=== PATIENT | male | born 1990 | race Caucasian/White ===

== ENCOUNTER 2016-07-12 13:04 | Emergency (ER) | payer MEDICAID, OTHER ==
--- NOTE | 2016-07-12 13:39 | EDPHY ---
H & P Stated Complaint: Was in the hospital last week for "heart issues". Feels fatigued Time Seen by Provider: 07/12/16 13:29 HPI/ROS: CHIEF COMPLAINT: Hot flashes HISTORY OF PRESENT ILLNESS: The patient is a 26-year-old man who comes to the emergency department complaining of hot flashes. He is concerned however because he had some chest pain last week and was seen in the urgent care and transferred from there in an ambulance to the emergency department at [facility]. They kept him there for 5 hours and then discharged him will without any specific diagnosis. He has continued to have mild chest tingling but no pain. No shortness of breath. Today he began to have hot flashes and cold sweats. No fever. No sore throat, no runny nose, no cough. He thought that maybe he was getting the flu but called the nurse advice line who recommended he come be seen. He does have a history of significant asthma but has not had any recent wheezing or exacerbations. He also has a significant history of drug abuse but states that he has not taken any substances last week other than the prescribe Suboxone. He did take a dose of this each day over the last week and denies withdrawal symptoms. REVIEW OF SYSTEMS: Constitutional: denies: chills, fever, recent illness, recent injury EENTM: denies: blurred vision, double vision, nose congestion Respiratory: denies: cough, shortness of breath Cardiac: See HPI Gastrointestinal/Abdominal: denies: abdominal pain, diarrhea, nausea, vomiting, blood streaked stools Genitourinary: denies: dysuria, frequency, hematuria, pain Musculoskeletal: denies: joint pain, muscle pain Skin: denies: lesions, rash, jaundice, bruising Neurological: denies: headache, numbness, paresthesia, tingling, dizziness, weakness Hematologic/Lymphatic: denies: blood clots, easy bleeding, easy bruising Immunologic/allergic: denies: HIV/AIDS, transplant EXAM: GENERAL: Well-appearing, well-nourished and in no acute distress. HEAD: Atraumatic, normocephalic. EYES: Pupils equal round and reactive to light, extraocular movements intact, sclera anicteric, conjunctiva are normal. ENT: TMs normal, nares patent, oropharynx clear without exudates. Moist mucous membranes. NECK: Normal range of motion, supple without lymphadenopathy or JVD. LUNGS: Breath sounds clear to auscultation bilaterally and equal. No wheezes rales or rhonchi. HEART: Regular rate and rhythm without murmurs, rubs or gallops. ABDOMEN: Soft, nontender, normoactive bowel sounds. No guarding, no rebound. No masses appreciated. BACK: No CVA tenderness, no spinal tenderness, step-offs or deformities EXTREMITIES: Normal range of motion, no pitting or edema. No clubbing or cyanosis. NEUROLOGICAL: Cranial nerves II through XII grossly intact. Normal speech, normal gait. 5/5 strength, normal movement in all extremities, normal sensation PSYCH: Normal mood, normal affect. SKIN: Warm, dry, normal turgor, no visible rashes or lesions. Source: Patient Exam Limitations: No limitations - Personal History Current Tetanus Diphtheria and Acellular Pertussis (TDAP): Yes - Medical/Surgical History Hx Asthma: Yes Hx Chronic Respiratory Disease: No Hx Diabetes: No Hx Cardiac Disease: Yes Hx Renal Disease: No Hx Cirrhosis: No Hx Alcoholism: No Hx HIV/AIDS: No Hx Splenectomy or Spleen Trauma: No Other PMH: Asthma, anxiety. Hernia repair, ptsd, ocd, bipolar disorder. heroin abuse - Family History Significant Family History: No pertinent family hx - Social History Smoking Status: Heavy smoker Alcohol Use: None Drug Use: None Constitutional: Initial Vital Signs Temperature (C) 37.1 C 07/12/16 13:09 Heart Rate 102 H 07/12/16 13:09 Respiratory Rate 16 07/12/16 13:09 Blood Pressure 122/85 H 07/12/16 13:09 O2 Sat (%) 98 07/12/16 13:09 O2 Delivery Mode Room Air Allergies/Adverse Reactions: No Known Allergies Allergy (Verified 07/20/15 18:14) Home Medications: Medication Instructions Recorded Acetaminophen [Tylenol] 325 mg PO DAILY PRN 07/20/15 Albuterol [Ventolin Hfa Inhaler] 200 puffs IH Q4H PRN 07/20/15 Gabapentin [Neurontin] 300 mg PO BID@12,21 07/20/15 Gabapentin [Neurontin] 300 mg PO DAILY@08 07/20/15 MIRTAZAPINE [MIRTAZAPINE] 45 mg PO HS 07/20/15 Montelukast Sodium [Singulair] 10 mg PO HS 07/20/15 clonAZEPAM [Clonazepam] 0.5 mg PO DAILY 07/20/15 Wellbutrin Sr 07/12/16 Medical Decision Making - Diagnostics EKG Interpretation: An EKG obtained and was read and documented in trace view. Please see trace view for full reading and report. Sinus rhythm, no acute ischemic changes, similar to previous ED Course/Re-evaluation: I was able to review the patient's records from [facility] on the 3rd of this month. He presented there from the Urgent Care complaining of chest pain after ingesting methamphetamine, Suboxone, heroin and cocaine in the recent past. He had a unremarkable EKG and 2-troponins and was discharged home with anxiety and drug counseling. His symptoms resolved with Ativan. He has a history of severe anxiety, attention deficit hyperactivity disorder, OCD, bipolar and asthma. 2:30 p.m. the patient feels much better after Ativan. His symptoms have resolved. He does think that he is beginning to get sick. Flu swab still pending. Otherwise he is ready to go home. He declines further workup or testing. Differential Diagnosis: Partial list of the Differential diagnosis considered include but were not limited to; anxiety, withdrawal, substance abuse, arrhythmia, influenza, viral syndrome and although unlikely based on the history and physical exam, I also considered head injury, endocarditis, pericarditis, pneumonia, PE. I discussed these differential diagnoses and the plan with the patient as well as the usual and expected course. The patient understands that the diagnosis is provisional and that in medicine we are not always correct and that further workup is often warranted. Usual and customary warnings were given. All of the patient's questions were answered. The patient was instructed to return to the emergency department should the symptoms at all worsen or return, otherwise to followup with the physician as we discussed. - Data Points Laboratory Results: 07/12/16 13:50 Influenza Typ A,B (DFA) NEGATIVE FOR FLU (NEGATIVE) Medications Given: Discontinued Medications Lorazepam (Ativan) 2 mg PO EDNOW ONE Stop: 07/12/16 13:46 Last Admin: 07/12/16 13:57 Dose: 2 mg Lorazepam (Ativan 1 Mg Prepack#4) 1 btl TAKEHOME EDNOW ONE Stop: 07/12/16 14:26 Last Admin: 07/12/16 14:29 Dose: 1 btl Departure - Departure Disposition: Home, Routine, Self-Care Clinical Impression: Anxiety Condition: Fair Instructions: Anxiety (ED), Lorazepam (By mouth) Referrals: Oliver Troy MD [Primary Care Provider] - As per Instructions
[2016-07-12] MEDS ORDERED: LORazepam 1 MG TAB PO ONE (13:45)
--- NOTE | 2016-07-12 13:50 | CPEKG ---
Heart Rate: 89 RR Interval: 674 P-R Interval: 132 QRSD Interval: 82 QT Interval: 344 QTC Interval: 419 P [place]: 62 QRS [place]: 50 T Wave [place]: -2 EKG Severity - NORMAL ECG - EKG Impression: SINUS RHYTHM Electronically Signed By: Rhys Espitia 12-Jul-2016 14:20:20
[2016-07-12] MEDS ORDERED: LORAZEPAM 1 MG PREPACK#4 BTL TAKEHOME ONE (14:25)
[2016-07-12 14:39] VITALS: BP 117/74; PULSE 84; RESP 18; TEMP 97.7; O2SAT 96
== END 2016-07-12 14:38 | disposition home or self-care (01) ==
DX: F41.9 Anxiety disorder, unspecified (principal); J45.909 Unspecified asthma, uncomplicated; F17.200 Nicotine dependence, unspecified, uncomplicated

== ENCOUNTER 2016-09-27 16:04 | Emergency (ER) | payer MEDICAID ==
[2016-09-27 16:20] VITALS: BP 103/62; PULSE 77; RESP 18; TEMP 98; O2SAT 96
--- NOTE | 2016-09-27 16:32 | UCPHY ---
H & P Time Seen by Provider: 09/27/16 16:19 Patient Type: New HPI/ROS: 26-year-old male states he was just discharged from jail and needs his asthma medications. He is not currently having a cough, fevers chills or wheezing. Review of systems As per HPI General no fever no chills no weakness HEENT no eye pain no eye discharge. No eye redness, no sore throat Respiratory no cough, no shortness of breath Cardiac no chest pain, no peripheral edema GI no abdominal pain, no diarrhea, no constipation, no nausea, no vomiting no flank pain, no hematuria, no dysuria Musculoskeletal no myalgias, no joint pain Heme no easy bruising, no easy bleeding Endo no polyuria, no polydipsia Skin no rashes, no pruritus Neuro no syncope, no dizziness, no headaches Psych is no suicidal ideation, no homicidal ideation Past Medical/Surgical History: Asthma Social History: Denies excessive alcohol or drug use Smoking Status: Heavy smoker Physical Exam: 26-year-old male alert Alert and oriented in no acute distress nontoxic appearance, afebrile Atraumatic normocephalic Neck no JVD Lungs clear to auscultation, no respiratory distress Heart regular rate and rhythm Extremities no cyanosis clubbing edema Constitutional: Initial Vital Signs Temperature (C) 36.6 C 09/27/16 16:17 Heart Rate 77 09/27/16 16:17 Respiratory Rate 18 09/27/16 16:17 Blood Pressure 103/62 09/27/16 16:17 O2 Sat (%) 96 09/27/16 16:17 Allergies/Adverse Reactions: No Known Allergies Allergy (Verified 07/20/15 18:14) Home Medications: Medication Instructions Recorded Acetaminophen [Tylenol] 325 mg PO DAILY PRN 07/20/15 Albuterol [Ventolin Hfa Inhaler] 200 puffs IH Q4H PRN 07/20/15 Gabapentin [Neurontin] 300 mg PO BID@1207/20/15 Gabapentin [Neurontin] 300 mg PO DAILY@08 07/20/15 MIRTAZAPINE [MIRTAZAPINE] 45 mg PO HS 07/20/15 Montelukast Sodium [Singulair] 10 mg PO HS 07/20/15 clonazePAM [Clonazepam] 0.5 mg PO DAILY 07/20/15 Wellbutrin Sr 07/12/16 Albuterol Sulfate [ALBUTEROL 0.63 mg IH Q4 PRN #120 vial.neb 09/27/16 SULFATE] Albuterol [Ventolin Hfa Inhaler] 2 puffs IH Q4 PRN #1 mdi 09/27/16 Montelukast Sodium [Singulair 10 10 mg PO DAILY@1800 #30 tab 09/27/16 mg (*)] Medical Decision Making ED Course/Re-evaluation: Patient here for prescription refill just recently released from jail needs a bridge on his asthma medicines until he is able to get them Departure - Departure Disposition: Home, Routine, Self-Care Clinical Impression: Encounter for medication refill Condition: Good Instructions: Asthma (ED) Referrals: NONE *PRIMARY CARE P,. [Primary Care Provider] - As per Instructions Prescriptions: Albuterol [Ventolin Hfa Inhaler] 2 puffs IH Q4 PRN #1 mdi PRN Reason: Cough, Moderate Albuterol Sulfate [ALBUTEROL SULFATE] 0.63 mg IH Q4 PRN #120 vial.neb PRN Reason: Wheezing Montelukast Sodium [Singulair 10 mg (*)] 10 mg PO DAILY@1800 #30 tab - PQRS PQRS Measurement: na
== END 2016-09-27 16:37 | disposition home or self-care (01) ==
LOC: CED 16:04
DX: Z76.0 Encounter for issue of repeat prescription (principal); J45.909 Unspecified asthma, uncomplicated
CPT/HCPCS: 99202-PO; G0463-PO

== ENCOUNTER 2016-10-15 15:35 | Emergency (ER) | payer MEDICAID ==
[2016-10-15 15:41] VITALS: O2SAT 96
[2016-10-15] MEDS ORDERED: LORazepam 2 MG/ML INJ IVP ONE (15:51)
[2016-10-15] MEDS ORDERED: IPRATROPIUM/ALBUTEROL 3 ML DEYVIAL IH ONE (15:51)
[2016-10-15] MEDS ORDERED: LORazepam 2 MG/ML INJ ONE (15:52)
--- NOTE | 2016-10-15 15:55 | EDPHY ---
H & P Stated Complaint: cp and sob Time Seen by Provider: 10/15/16 15:45 HPI/ROS: CHIEF COMPLAINT: chest pain, dyspnea HISTORY OF PRESENT ILLNESS: 26-year-old male history of asthma complaining of dyspnea and chest pain since this morning unrelieved with Albuterol meter dose inhaler. The chest pain does not radiate. This is also elicited self- described anxiety from the patient. Has been sober from heroin for the past 1 month. No cocaine use. No peripheral edema or discoloration. REVIEW OF SYSTEMS: A ten point review of systems was performed and is negative with the exception of the items mentioned in the HPI PAST MEDICAL & SURGICAL HISTORY: Asthma. History of heroin abuse sober x1 month. No history of coronary artery disease. SOCIAL HISTORY: tobaccosmoker FAMILY HISTORY: No family history of premature coronary artery disease. PHYSICAL EXAM (Prior to examination, patient consented to physical exam, hands were washed and my usual and customary physical exam procedures followed) 1) GENERAL: Well-developed, well-nourished, alert and oriented. Appears anxious. 2) HEAD: Normocephalic, atraumatic 3) HEENT: Pupils equal, round, reactive to light bilaterally. Sclera anicteric. Nasopharynx, oropharynx, clear, no lesions. No tonsillar enlargement or tonsillar exudate Ears bilaterally with normal tympanic membranes. 4) NECK: Full range of motion, no meningeal signs. 5) LUNGS: bilateral end-expiratory wheeze, no rhonchi, no retractions. no accessory muscle use 6) HEART: Regular rate and rhythm, no murmur, no heave, no gallop. 7) ABDOMEN: No guarding, no rebound, no focal tenderness,n, 8) MUSCULOSKELETAL: No peripheral edema or discoloration. 9) BACK: No CVA tenderness. 10) SKIN: No rash, no petechiae. 11) Psychiatric: Patient is oriented X 3, there is no agitation. DIFFERENTIAL DIAGNOSIS: In no particular order, including but not limited to myocardial ischemia, pulmonary embolus, chest wall pain, pleural inflammation and pulmonary infectious causes. - Personal History Current Tetanus/Diphtheria Vaccine: Yes - Medical/Surgical History Hx Asthma: Yes Hx Chronic Respiratory Disease: No Hx Diabetes: No Hx Cardiac Disease: Yes Hx Renal Disease: No Hx Cirrhosis: No Hx Alcoholism: No Hx HIV/AIDS: No Hx Splenectomy or Spleen Trauma: No Other PMH: Asthma, anxiety. Hernia repair, ptsd, ocd, bipolar disorder. heroin abuse. states had heart attack in fe - Social History Smoking Status: Heavy smoker Constitutional: Initial Vital Signs Temperature (C) 36.5 C 10/15/16 15:38 Heart Rate 122 H 10/15/16 15:38 Respiratory Rate 22 H 10/15/16 15:38 Blood Pressure 117/76 10/15/16 15:38 O2 Sat (%) 96 10/15/16 15:38 O2 Delivery Mode Room Air Allergies/Adverse Reactions: No Known Allergies Allergy (Verified 10/15/16 15:38) Home Medications: Medication Instructions Recorded Acetaminophen [Tylenol] 325 mg PO DAILY PRN 07/20/15 Albuterol [Ventolin Hfa Inhaler] 200 puffs IH Q4H PRN 07/20/15 Gabapentin [Neurontin] 300 mg PO BID@12,21 07/20/15 Gabapentin [Neurontin] 300 mg PO DAILY@08 07/20/15 MIRTAZAPINE [MIRTAZAPINE] 45 mg PO HS 07/20/15 Montelukast Sodium [Singulair] 10 mg PO HS 07/20/15 clonazePAM [Clonazepam] 0.5 mg PO DAILY 07/20/15 Wellbutrin Sr 07/12/16 Albuterol Sulfate [ALBUTEROL 0.63 mg IH Q4 PRN #120 vial.neb 09/27/16 SULFATE] Albuterol [Ventolin Hfa Inhaler] 2 puffs IH Q4 PRN #1 mdi 09/27/16 Montelukast Sodium [Singulair 10 10 mg PO DAILY@1800 #30 tab 09/27/16 mg (*)] Suboxone 12 mg-3 mg Sl Film 10/15/16 Medical Decision Making ED Course/Re-evaluation: 3:58 p.m.: Old medical records reviewed. Patient states that he has been sober from drugs for 1 month. Care and management in consultation with secondary supervising physician Dr Espitia . 4:02 p.m.: Patient informs me that he used methamphetamine a few days ago. 4:14 pm: I recommended steroid however he declines this. At this time he is requesting food and would like to know whether or I could prescribe iron supplements to his girlfriend. 4:48 p.m.: Re-evaluation, is feeling improvement. Awaiting D-dimer results. No murmur appreciated on auscultation. Given his complaints chest pain, dyspnea and history of IV drug use, I recommended echocardiography. He adamantly declines this at this time stating "You guys always want to do that stuff to me." I informed him of the risks of declining this including, but not limited to, , need for long-term care, chronic and permanent disability. 5:13 p.m.: Discussed the patient his diagnostic studies including negative D- dimer. States that he would like to leave. Once again, I recommended he have echocardiography performed to evaluate for possible endocarditis. He declines this. Informed the patient in my professional opinion, he necessitates further evaluation. he states that he fully understands the risks to his health and well-being by leaving the emergency department AGAINST MEDICAL ADVICE. He states that they would like to leave, "Because it was just anxiety and you guys always do this to me." By leaving AGAINST MEDICAL ADVICE the patient has been explained and has verbalized understanding and acceptance of the risks of leaving AGAINST MEDICAL ADVICE, including, but not limited to, , permanent and chronic disability, permanent and chronic loss of income, need for permanent and long-term care, and other situations and circumstances too numerous to mention herein. I think he has the capacity to fully understand these risks. I have offered ample opportunity to answer questions. I have offered to speak with family and/or friends regarding this issue as well. He has been informed that he is welcome to return to emergency department at any point for reevaluation. - Data Points Laboratory Results: Laboratory Results 10/15/16 15:55 10/15/16 15:55 10/15/16 10/15/16 10/15/16 16:39 15:55 15:55 WBC 7.78 10^3/uL 10^3/uL (3.80-9.50) RBC 6.22 10^6/uL 10^6/uL (4.40-6.38) Hgb 18.4 g/dL H g/dL (13.7-17.5) Hct 50.3 % % (40.0-51.0) MCV 80.9 fL L fL (81.5-99.8) MCH 29.6 pg pg (27.9-34.1) MCHC 36.6 g/dL g/dL (32.4-36.7) RDW 12.1 % % (11.5-15.2) Plt Count 316 10^3/uL 10^3/uL (150-400) MPV 10.6 fL fL (8.7-11.7) Neut % (Auto) 58.6 % % (39.3-74.2) Lymph % (Auto) 31.5 % % (15.0-45.0) Wil[place] % (Auto) 8.1 % % (4.5-13.0) Eos % (Auto) 1.2 % % (0.6-7.6) Baso % (Auto) 0.5 % % (0.3-1.7) Nucleat RBC Rel Count 0.0 % % (0.0-0.2) Absolute Neuts (auto) 4.56 10^3/uL 10^3/uL (1.70-6.50) Absolute Lymphs (auto) 2.45 10^3/uL 10^3/uL (1.00-3.00) Absolute Monos (auto) 0.63 10^3/uL 10^3/uL (0.30-0.80) Absolute Eos (auto) 0.09 10^3/uL 10^3/uL (0.03-0.40) Absolute Basos (auto) 0.04 10^3/uL 10^3/uL (0.02-0.10) Absolute Nucleated RBC 0.00 10^3/uL 10^3/uL (0-0.01) Immature Gran % 0.1 % % (0.0-1.1) Immature Gran # 0.01 10^3/uL 10^3/uL (0.00-0.10) D-Dimer < 0.27 ug/mLFEU ug/mLFEU (0.00-0.50) Sodium 139 mEq/L mEq/L (134-144) Potassium 3.8 mEq/L mEq/L (3.5-5.2) Chloride 105 mEq/L mEq/L (97-110) Carbon Dioxide 19 mEq/l L mEq/l (22-31) Anion Gap 15 mEq/L mEq/L (8-16) BUN 19 mg/dL mg/dL (7-23) Creatinine 0.9 mg/dL mg/dL (0.7-1.3) Estimated GFR > 60 Glucose 109 mg/dL H mg/dL (70-100) Calcium 9.9 mg/dL mg/dL (8.5-10.4) Troponin I < 0.012 ng/mL ng/mL (0-0.034) Medications Given: Discontinued Medications Albuterol/Ipratropium (Duoneb) 3 ml IH EDNOW ONE Stop: 10/15/16 15:52 Last Admin: 10/15/16 16:06 Dose: 3 ml Lorazepam (Ativan Injection) 1 mg IVP EDNOW ONE Stop: 10/15/16 15:52 Last Admin: 10/15/16 16:02 Dose: 1 mg Methylprednisolone Sodium Succinate (Solu-Medrol) 125 mg IVP EDNOW ONE Stop: 10/15/16 15:52 Last Admin: 10/15/16 16:15 Dose: Not Given Departure - Departure Disposition: Against Medical Advice Clinical Impression: Shortness of breath, Methamphetamine abuse, Anxiety Chest pain Qualifiers: Chest pain type: unspecified Qualified Code(s): R07.9 - Chest pain, unspecified Condition: Good Instructions: Chest Pain (ED), Methamphetamine Abuse (ED) Additional Instructions: I recommended you stay in the emergency department for further diagnostic studies. You have declined this. You have been informed of the risks of leaving against medical advice including, but not limited to, , permanent and chronic disability, need for permanent and long-term care. If you change your mind, please return to the ER Referrals: [facility] [Outside] - 1 day without fail Stand Alone Forms: Work Excuse
--- NOTE | 2016-10-15 16:01 | CPEKG ---
Heart Rate: 87 RR Interval: 690 P-R Interval: 132 QRSD Interval: 82 QT Interval: 352 QTC Interval: 424 P [place]: 78 QRS [place]: 64 T Wave [place]: 66 EKG Severity - ABNORMAL ECG - EKG Impression: SINUS ARRHYTHMIA EKG Impression: RIGHT ATRIAL ABNORMALITY Electronically Signed By: Stacia Miller 16-Oct-2016 17:27:16
[2016-10-15 16:03] LABS: % IMMATURE GRANULYOCYTES 0.1 % (0.0-1.1); ABSOLUTE IMMATURE GRANULOCYTES 0.01 10^3/uL (0.00-0.10); ADD DIFF? NO; ADD MORPH? NO; ADD SCAN? NO; ATYPICAL LYMPHOCYTE FLAG 10 (0-99); FRAGMENT RBC FLAG 0 (0-99); HEMATOCRIT 50.3 % (40.0-51.0); HEMOGLOBIN 18.4 g/dL (13.7-17.5); LEFT SHIFT FLG 0 (0-99); LIPEMIA HEMOLYSIS FLAG 90 (0-99); MEAN CELL HEMOGLOBIN 29.6 pg (27.9-34.1); MEAN CELL HEMOGLOBIN CONCENTR. 36.6 g/dL (32.4-36.7); MEAN CELL VOLUME 80.9 fL (81.5-99.8); MEAN PLATELET VOLUME 10.6 fL (8.7-11.7); PLATELET CLUMPS FLAG 10 (0-99); PLATELET COUNT 316 10^3/uL (150-400); RED BLOOD CELL COUNT 6.22 10^6/uL (4.40-6.38); RED CELL DISTRIBUTION WIDTH 12.1 % (11.5-15.2)
[2016-10-15] MEDS: methylPREDNISolone SOD SUCC 125 MG/2 ML VIAL IVP ONE ×2 (16:06→16:15)
[2016-10-15 16:21] LABS: ANION GAP 15 mEq/L (8-16); CALCIUM 9.9 mg/dL (8.5-10.4); CARBON DIOXIDE 19 mEq/l (22-31); CHLORIDE 105 mEq/L (97-110); CREATININE 0.9 mg/dL (0.7-1.3); GLOMERULAR FILTRATION RATE > 60; GLUCOSE 109 mg/dL (70-100); POTASSIUM 3.8 mEq/L (3.5-5.2); SODIUM 139 mEq/L (134-144)
[2016-10-15 16:32] LABS: TROPONIN I < 0.012 ng/mL (0-0.034)
[2016-10-15 17:15] VITALS: BP 107/87; PULSE 103; RESP 18; TEMP 96.8
== END 2016-10-15 17:15 | disposition left against medical advice (07) ==
DX: R07.9 Chest pain, unspecified (principal); R06.02 Shortness of breath; F15.10 Other stimulant abuse, uncomplicated; F41.9 Anxiety disorder, unspecified; J45.909 Unspecified asthma, uncomplicated; F17.200 Nicotine dependence, unspecified, uncomplicated
CPT/HCPCS: 96374; J2060

== ENCOUNTER 2017-08-23 04:40 | Emergency (ER) | payer MEDICAID ==
[2017-08-23 04:46] VITALS: BP 124/92; PULSE 111; RESP 18; TEMP 98.2; O2SAT 96
--- NOTE | 2017-08-23 04:53 | EDPHY ---
H & P Stated Complaint: bilat hand/finger infections from metal shavings Time Seen by Provider: 08/23/17 05:00 HPI/ROS: HPI CHIEF COMPLAINT: Possible finger infections. HISTORY OF PRESENT ILLNESS: Patient 27-year-old male, uses methamphetamine regularly, presents emergency room concerned that all of his fingers may be infected. 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 However he lost his prescription. He now presents emergency room stating that his fingers may be infected. On exam I do not appreciate any significant signs infection of any of his fingers. He does have dirt underneath his fingernails. No significant redness or swelling. Past Medical History: Methamphetamine abuse Past Surgical History: Denies recent surgical history Social History: Daily methamphetamine use Family History: Denies family history ROS REVIEW OF SYSTEMS: A comprehensive 10 point review of systems is otherwise negative aside from elements mentioned in the history of present illness. Exam Constitutional triage nursing summary reviewed, vital signs reviewed, awake/ alert. Eyes normal conjunctivae and sclera, EOMI, PERRLA. HENT normal inspection, atraumatic, moist mucus membranes, no epistaxis, neck supple/ no meningismus, no raccoon eyes. Respiratory clear to auscultation bilaterally, normal breath sounds, no respiratory distress, no wheezing. Cardiovascular rate normal, regular rhythm, no murmur, no edema, distal pulses normal. Gastrointestinal soft, non-tender, no rebound, no guarding, normal bowel sounds, no distension, no pulsatile mass. Genitourinary no CVA tenderness. Musculoskeletal no midline vertebral tenderness, full range of motion, no calf swelling, no tenderness of extremities, no meningismus, good pulses, neurovascularly intact. Skin pink, warm, & dry, no rash, skin atraumatic. All of his digits, there is dirt underneath all his fingernails. I do not appreciate a significant swelling, redness, drainage or pus. There is definitely no signs of flexor tenosynovitis or significant sausage digit. Neurologic awake, alert and oriented x 3, AAOx3, moves all 4 extremities equally, motor intact, sensory intact, CN II-XII intact, normal cerebellar, normal vision, normal speech. Psychiatric normal mood/affect. Heme/Lymph/Immune no lymphadenopathy. Differential Diagnosis: Plan for this patient recommend warm compresses or warm soaks to his hands 3 times a day for 20 min. Keflex as prescribed. Return emergency room if there is any worsening signs of infection this includes redness, swelling, pain, drainage Keflex RX given. Keflex PO given in Er. Source: Patient - Personal History Current Tetanus/Diphtheria Vaccine: Unsure Current Tetanus Diphtheria and Acellular Pertussis (TDAP): Unsure - Medical/Surgical History Hx Asthma: Yes Hx Chronic Respiratory Disease: No Hx Diabetes: No Hx Cardiac Disease: Yes Hx Renal Disease: No Hx Cirrhosis: No Hx Alcoholism: No Hx HIV/AIDS: No Hx Splenectomy or Spleen Trauma: No Other PMH: Asthma, anxiety. Hernia repair, ptsd, ocd, bipolar disorder. heroin abuse. states had heart attack in jul - Social History Smoking Status: Heavy smoker Constitutional: Initial Vital Signs Temperature (C) 36.8 C 08/23/17 04:41 Heart Rate 111 H 08/23/17 04:41 Respiratory Rate 18 08/23/17 04:41 Blood Pressure 124/92 H 08/23/17 04:41 O2 Sat (%) 96 08/23/17 04:41 O2 Delivery Mode Room Air Allergies/Adverse Reactions: No Known Allergies Allergy (Verified 08/23/17 04:45) Home Medications: Medication Instructions Recorded Acetaminophen [Tylenol] 325 mg PO DAILY PRN 07/20/15 Albuterol [Ventolin Hfa Inhaler] 200 puffs IH Q4H PRN 07/20/15 Albuterol [Ventolin Hfa Inhaler] 2 puffs IH Q4 PRN #1 mdi 09/27/16 Suboxone 12 mg-3 mg Sl Film 10/15/16 Cephalexin [Keflex] 500 mg PO Q6H #28 cap 08/23/17 Departure - Departure Disposition: Home, Routine, Self-Care Clinical Impression: Cellulitis, finger Qualifiers: Laterality: unspecified laterality Qualified Code(s): L03.019 - Cellulitis of unspecified finger Condition: Good Instructions: Cellulitis (ED) Additional Instructions: 1. Recommend warm soaks to both hands. 3 times a day for 20 min. 2. Antibiotics as prescribed. 3. Return if worsening symptoms questions or concerns. Referrals: NONE *PRIMARY CARE P,. [Primary Care Provider] - As per Instructions Prescriptions: Cephalexin [Keflex] 500 mg PO Q6H #28 cap
[2017-08-23] MEDS ORDERED: CEPHALEXIN 500MG PREPACK#4 BTL TAKEHOME ONE (04:56)
[2017-08-23] MEDS ORDERED: CEPHALEXIN 500 MG CAP PO ONE (04:56)
== END 2017-08-23 05:18 | disposition home or self-care (01) ==
DX: L03.011 Cellulitis of right finger (principal); L03.012 Cellulitis of left finger; J45.909 Unspecified asthma, uncomplicated; F17.200 Nicotine dependence, unspecified, uncomplicated